=== PATIENT | male | born 1950 | race Caucasian/White ===

== ENCOUNTER 2017-03-23 03:28 | Observation (INO) | payer MEDICARE, OTHER ==
[2017-03-23] VITALS (7 sets, daily range): BP systolic 116–160; BP diastolic 48–73; PULSE 60–80; RESP 14–21; O2SAT 95–97
[~2017-03-23] VITALS: Ht 167.6 cm; Wt 117.7 kg
[~2017-03-23 03:28] MED LIST: ADV250INH IH; APIX5TAB PO; ASCO-294 PO; ASPI-973 PO; BIMA2.5D5 BOTH_EYES; BRIM5DRO9 BOTH_EYES; CARV12.5 PO; CEPH500C PO; CHOL200047 PO; FEXO-106 PO; FURO40TA4 PO; LIP40 PO; LISI40TA PO; METF500T4 PO; OMEP20CA11 PO; POTA10CA42 PO; VIT1TABL83 PO; ZAFI20TA14 PO
--- NOTE | 2017-03-23 03:48 | ED.REPORT ---
HPI-Chest Pain 40 and Over Date of Service Mar 23, 2017 ED Provider: Catracho Rosen MD 67 y/o male with a hx of Diabetes Mellitus, Hypertension, paroxysmal atrial fibrillation, CHF and GERD presents to the ED via EMS complaining of chest pain , onset 7 hours ago. Initally, the pt thought he was experiencing GERD sx but then became concerned as the sx were significantly worse than normal. He experienced burning pain followed by belching. Associated sx include intermittent "sharp, pin prick pain" in the chest. He denies vomiting, SOB, diaphoresis, change in lower extremity edema and facial and extremity numbness and weakness. The pt takes Omeprazole twice a day and denies missing any doses. The pt got a pacemaker placed two weeks ago. He states he used his pulsometer and found that his pacemaker had been fluctuating which concerned him further. The pt took 4 baby Aspirin about 2 hours ago. Nursing Notes Stated Complaint: CHEST PAIN Nursing Notes Reviewed: Yes Allergies: Coded Allergies: Cat Dander (Verified Allergy, Severe, 03/23/17) Cultivated Oat Pollen (Verified Allergy, Severe, 03/23/17) Dust (Verified Allergy, Severe, 03/23/17) Grass (Verified Allergy, Severe, 03/23/17) hydrocodone (Verified Allergy, Mild, Rash, 03/23/17) FACE FELT ITCHY mold (Verified Allergy, Unknown, Shortness of Breath, 03/23/17) WHEEZING, FACIAL SWELLING montelukast (Verified Adverse Reaction, Severe, delirium, 03/23/17) Scheduled Apixaban (Eliquis) 5 Mg Tablet 5 MG PO BID Ascorbate Calcium (Vitamin C) 500 Mg Tablet 500 MG PO DAILY Aspirin (Aspirin) 81 Mg Tablet 81 MG PO HS Atorvastatin (Lipitor) 40 Mg Tablet 40 MG PO HS Bimatoprost (Lumigan) 45 Drop/2.5 Ml Ophsoln 1 DROP BOTH_EYES HS Brimonidine Tartrate (Brimonidine 0.2% Oph Soln) 5 Ml Drops 1 DROP BOTH_EYES TID Carvedilol (Coreg) 12.5 Mg Tablet 12.5 MG PO BID Cephalexin (Cephalexin) 500 Mg Capsule 500 MG PO BID Cholecalciferol (Vitamin D3) (Vitamin D3) 2,000 Unit Capsule 4,000 UNIT PO DAILY Fexofenadine (Fexofenadine) 180 Mg Tablet 180 MG PO DAILY EVERY OTHER DAY Fluticasone/Salmeterol (Advair 250-50 Diskus) 60 Puff/Inh Disk 1 PUFF IH BID Furosemide (Furosemide) 40 Mg Tablet 40 MG PO DAILY Lisinopril (Lisinopril) 40 Mg Tablet 60 MG PO HS Metformin (Metformin) 500 Mg Tablet 500 MG PO BID Omeprazole (Omeprazole) 20 Mg Capsule.dr 40 MG PO BID Potassium Chloride (Potassium Chloride) 10 Meq Capsule.er 10 MEQ PO DAILY TAKE WITH FOOD Vit B Comp/C/FA/Iron/Vit E (Vitamin B Complex Tablet) 1 Each Tablet 1 EACH PO DAILY Zafirlukast (Zafirlukast) 20 Mg Tablet 20 MG PO BID General Time Seen by MD: 03:47 Chief Complaint Chest pain Hx Obtained From: Patient Arrived By: Ambulance Sudden in Onset?: Yes Onset Occurred: 9 - 12 hours ago Symptom Duration: Since onset Location: : Chest left: Substernal Quality: Burning Radiation: : Does not radiate Severity: Current: Moderate Severity: Maximum: Moderate Recent Healthcare: No recent doctor visit Similar Sx Previous: No Past Medical History Past Medical History Glaucoma Diabetes Mellitus Hypertension GERD Paroxysmal atrial fibrillation CHF GERD ASTHMA SLEEP APNEA MELANOMA CANCER (S/P RESECTION) Past Surgical History laproscopic surgery on right knee melanoma removed from left cheek Smoking History Never Smoker Ambulatory Status Independent Review of Systems Respiratory: Denies: Shortness of breath Cardiovascular: Reports: Chest pain, Denies: Edema (no change from baseline) GI: Denies: Vomiting Skin: Denies Diaphoresis Neurologic: Denies: Numbness, Weakness Complete sys rev & neg: except as marked. Physical Exam Initial Vital Signs Vital Signs (First) Date Time Temp Pulse Resp B/P Pulse Ox O2 Delivery O2 Flow Rate FiO2 03/23/17 03:51 36.7 71 14 156/67 97 Room Air Initial VS: Reviewed Head / Eyes: Atraumatic, Normocephalic Extremities: Vascular intact, Neuro intact, No tenderness Skin: Warm, Dry, No cyanosis Neurologic: Alert, Oriented, Nonfocal General/Constitutional: Awake, Alert, No acute distress, Cooperative Appearance / Presentation: Positive: Obese Respiratory / Chest: Atraumatic, Breath sounds NL, Breath sounds = bilat, No respiratory distress, No rales, No rhonchi, No wheezing, No retractions Cardiovascular: Heart rate NL, Regular rhythm, Heart sounds NL, No gallop, No murmurs, No rubs Extreme chronic edema bilaterally. Pt wearing compression stockings. Abdomen: Atraumatic, Soft, Non-tender, No guarding, No rebound Umbilical hernia, reducible but has gas in it. Neck: Atraumatic, Supple, Full range of motion, No JVD Interpretation & Diagnostics Lab Results Interpretation Result Diagram: 03/23/17 0415 03/23/17 0415 Test 03/23/17 04:15 White Blood Count 10.5th/mm3 (3.8-10.1) Red Blood Count 3.93mil/mm3 (4.40-5.80) Hemoglobin 11.9g/dL (13.8-17.2) Hematocrit 35.9% (41.0-50.0) Mean Corpuscular Volume 91.3fL (81-100) Mean Corpuscular Hemoglobin 30.3pg (27.0-35.0) Mean Corpuscular Hemoglobin Concent 33.1% (32.0-37.0) Red Cell Distribution Width 13.8% (12.3-15.4) Platelet Count 261bil/L (150-400) Neutrophils (%) (Auto) 79.1% (40-74) Lymphocytes (%) (Auto) 10.3% (14-46) Monocytes (%) (Auto) 8.4% (4-12) Eosinophils (%) (Auto) 1.8% (0-5) Basophils (%) (Auto) 0.2% (0-3) Sodium Level 143mEq/L (134-144) Potassium Level 3.8mEq/L (3.5-5.2) Chloride Level 107mEq/L (97-108) Carbon Dioxide Level 18mmol/L (18-29) Blood Urea Nitrogen 18mg/dL (8-27) Creatinine 0.94mg/dL (0.76-1.27) Estimat Glomerular Filtration Rate 85mL/min (>59) Glucose Level 143mg/dL (60-99) Calcium Level 9.1mg/dL (8.5-10.1) Magnesium Level 2.0mg/dL (1.6-2.6) Total Bilirubin 0.4mg/dL (0.0-1.2) Aspartate Amino Transf (AST/SGOT) 17U/L (0-50) Alanine Aminotransferase (ALT/SGPT) 23U/L (0-44) Alkaline Phosphatase 91U/L (25-160) Troponin T 0.010ug/L (0.0-0.011) Pro-B-Type Natriuretic Peptide 562.0pg/mL (0-376) Total Protein 6.6g/dL (6.4-8.4) Albumin 3.8g/dL (3.4-5.0) Hold Moody Top Tube Received (Received) ECG Interpretation ECG Interpretation: Normal sinus rhtyhm. Rate 70. Prolonged WA interval. Right bundle branch block 1st degree AV block Pacemaker placed No change from previous ECG on 03/10/17 Time: 03:49 Interpreted by: ED physician X-Ray Chest Interpretation Chest Xray Interpretation: Result: unremarkable View: Portable, 1 view Interpretation / Wet Read by: Wet read ED physician Re-Eval/Medical Decision Med Decision/Clinical Course 67-year-old diabetic male presents with sharp pricking chest pain off and on for the last seven hours or so. Pain is atypical for coronary disease, but he is diabetic with a history of CHF and paroxysmal A. fib. He has recently had a pacemaker installed. He is ultimately pain free here with an acids, nitrates, and had taken aspirin en route. He is admitted for brief rule out protocol given his multiple risk factors. Incidental note of facial asymmetry made. 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 There are no neurologic findings elsewhere. Incidental note also made of a significant umbilical hernia with got and gas in the hernia. No evidence of incarceration no tenderness and it is easily reduced. Recent AICD/pacemaker installed in the past two weeks. History of PAF stable presently. History of CHF. Diabetes mellitus. Morbid obesity. Chronic peripheral edema. Source of Hx: Old records Time of Eval: 05:15 Patient Status: Mild relief Re-Evaluation/Progress Note: Rechecked pt. Discussed lab results, imaging results, diagnosis and plan to admit. Pt understands and agrees with the plan for admission. All questions addressed. Counseled Regarding: Diagnosis, Lab results, Need for admission Discharge & Departure Primary Impression: Chest pain Additional Impressions: Dilated cardiomyopathy Gastroesophageal reflux disease Disposition: ADMITTED TO HOSPITAL Discharge Condition All VS Reviewed: Yes Referrals: Andre Donovan DO (PCP) Crit Care Except Billable Proc Time Spent: 30-74 minutes (thirty minutes) Services Performed: Patient management by me, Time spent at bedside, Reviewing test results, Reviewing imaging, Discussing patient care, Documentation in record Scribe Attestation Portions of this note were transcribed by Juan Bray. I, , personally performed the history, physical exam and medical decision- making;I reviewed and confirmed the accuracy of the information in the transcribed note. Signed by Logan Cowart. 03/23/17 05:18 copies to: Andre Donovan Christopher W MD Mar 23, 2017 03:48 Juan Bray Mar 23, 2017 04:01
[2017-03-23] MEDS ORDERED: Famotidine Inj 20 MG in IV Premix 1 EACH IV ONE (04:00)
[2017-03-23] MEDS ORDERED: Alum-Mag Hydrox-Simeth 30 mL Suspension PO ONE (04:00)
[2017-03-23] MEDS ORDERED: Nitroglycerin 2% 1 Gm Ointment TOPICAL SCH (04:20)
[2017-03-23 04:22] LABS: BASOPHILS % (AUTO) 0.2 % (0-3); EOSINOPHILS % (AUTO) 1.8 % (0-5); MONOCYTES % (AUTO) 8.4 % (4-12); Mean Corpuscular Hemoglobin 30.3 pg (27.0-35.0); Mean Corpuscular Volume 91.3 fL (81-100); NEUTROPHILS % (AUTO) 79.1 % (40-74); Platelet Count 261 bil/L (150-400)
[2017-03-23 04:43] LABS: TROPONIN T 0.01 ug/L (0.0-0.011)
[2017-03-23] MEDS ORDERED: Ondansetron 2 mg/mL 2 mL Inj IVPUSH PRN ×2 (06:10→16:20)
[2017-03-23] MEDS ORDERED: Alum-Mag Hydrox-Simeth 30 mL Suspension PO PRN ×2 (06:10→16:20)
--- NOTE | 2017-03-23 08:20 | DRSVH ---
PROCEDURE: X-RAY CHEST ONE VIEW, PORTABLE ([id number]) INDICATIONS: cp TECHNIQUE: One view of the chest was acquired. COMPARISON: [facility], CR, XR CHEST 1VW (PORTABLE), 03/10/2017, 18:12. FINDINGS: Surgical changes and devices: Left-sided cardiac pacer. Lungs and pleura: No pleural effusions or pneumothorax. Lungs are clear. Mediastinum: Mediastinal contours appear normal. Heart size is normal. Bones and chest wall: No suspicious bony lesions. Overlying soft tissues appear unremarkable. IMPRESSION: No radiographic evidence of acute cardiopulmonary pathology. Dictated by: Moisés Porras M.D. on 03/23/2017 at 8:17 Approved by: Moisés Porras M.D. on 03/23/2017 at 8:18
--- NOTE | 2017-03-23 14:10 | NUR ---
Social Work-initial assessment/readiness for discharge: Data:See initial assessment. Pt is a 67 y/o male who was admitted on 03/23/17 for chest pain per H&P. Pt's insurance is [employer] and PCP Andre Donovan DO. EMR reviewed. SW met with pt to discuss discharge planning, SW role explained. Pt is alert and oriented x3. Pt resides at home alone on [address] where he remains independent with ADLS. Pt drives and does use any DME. Pt has no HH or SNF history. Pt has no watermaster care or VA benefits. SW discussed DPOA/ advanced directive, pt confirms he has not completed this, SW provided pt with a copy. Pt states his family will provide transport home at discharge. SW provided phone number and plan on white board in room. No anticipated discharge needs. SW will continue to follow if needs arise. Assessment:Pt who is independent at baseline. Plan:Pt to discharge home when medically stable via POV. No anticipated discharge needs. SW will continue to follow if needs arise. CASPER Medrano Addendum: 03/23/17 at 1418 by LUDMILA LANGE Amended: Links added.
--- NOTE | 2017-03-23 15:51 | DRSVH ---
[facility] [address] [place] [address] Echocardiogram Report Name: NOAH RUSSELL WStudy Date: 03/23/2017 Height: 66 in Hospital Exam Location: [facility] Weight: 259 lb Gender: Male BSA: 2.2 m2 : 1950 Age: 67 yrs BP: 132/69 mmHg Reason For Study: Chest Pain Performed By: Tona Swartz Referring Physician: CHRIS HARRISON Interpretation Summary The study quality was technically difficult. A contrast injection of Definity was performed to improve assessment of LV function. Left ventricular ejection fraction is estimated to be 35 +/- 5%. There is moderate global hypokinesis of the left ventricle. Severe mid to basal inferior hypokinesis There is no significant valvular heart disease. Procedure: A two-dimensional transthoracic echocardiogram with color flow and Doppler was performed in limited views only. The study quality was technically difficult. A contrast injection of Definity was performed to improve assessment of LV function. Comparison is made with the echocardiogram of 03/11/2017. The patient has a paced rhythm. Left Ventricle: The left ventricle is normal in size. Left ventricular ejection fraction is estimated to be 35 +/- 5%. There is moderate global hypokinesis of the left ventricle. Severe mid to basal inferior hypokinesis. Right Ventricle: The right ventricle is grossly normal size. There is a pacemaker lead in the right ventricle. Mitral Valve: The mitral valve is normal in structure and function. There is trace mitral regurgitation. Aortic Valve: The aortic valve is trileaflet. The aortic valve opens well. No aortic regurgitation is present. Tricuspid Valve: The tricuspid valve is normal in structure and function. There is moderate tricuspid regurgitation. The right ventricular systolic pressure is estimated at 68 mmHg assuming a right atrial pressure of 8 mm Hg. Great Vessels: The IVC is of normal diameter and collapses less than 50% with a sniff. This suggests a right atrial pressure of 8 mm Hg. Pericardium/ Pleura There is no pericardial effusion. There is no pleural effusion. MMode/2D Measurements & Calculations LVIDd LV miranda. diameter/BSA (cm/m^2) LV sys. diameter/BSA (cm/m^2) : 5.7 cm LVIDs : 4.2 cm FS: 25.9 % Doppler Measurements & Calculations Ao V2 max: 147.8 cm/secMV E max shiva MV E/A MV dec time Ao max P.7 mmHg : 59.4 cm/sec : 1.2 : 0.16 sec Ao mean P.7 mmHg MV A max shiva LVOT Max Shiva : 51.2 cm/sec : 90.8 cm/sec sev ratio: 0.60 Ao V2 mean LV V1 max P.3 mmHg : 115.9 cm/sec LV V1 VTI: 19.9 cm Ao V2 VTI: 33.1 cm Electronically signed by: Ernesto Tabor on Reading Physician:03/23/2017 03:50 PM
[2017-03-23] MEDS ORDERED: Polyethylene Glycol (PEG) 17 Gm Powder PO PRN (16:20)
[2017-03-23] MEDS ORDERED: Heparin 5,000 Unit/mL Inj SUBQ SCH (16:30)
--- NOTE | 2017-03-23 16:31 | PCM.HPMED ---
Subjective Date of Service Mar 23, 2017 Primary Provider: Admitting Physician: Fawad Singer Primary Care Physician: Andre Donovan DO Attending Physician: Fawad Singer Chief Complaint: chest pain History of Present Illness: 67 year old male with a history of Diabetes Mellitus, Hypertension, paroxysmal atrial fibrillation, GERD and significant cardiomyopathy post pacemaker implant about 2 weeks ago presents to the ED via EMS complaining of chest pain. Initially he thought he was experiencing his "regular" GERD symptoms but his symptoms of midsternal chest discomfort persisted and became worse than usual. He experienced burning pain followed by belching. Associated sx include intermittent "sharp, pin prick pain" in the chest. He denies vomiting, any shortness of breath worse than usual, diaphoresis, change in lower extremity edema, lightheadedness or dizziness. He used his pulsometer and found that his pulse was between 60-90 bpm which was unusual compared to his fairly stable heart rate of 60bpm after his pacemaker implant 2 weeks earlier. He became concerned and contacted his doctors office and was instructed to come to ED for further evaluation. Currently he denies any further chest discomfort and says that he feels back to his "usual" self. Allergies Coded Allergies: Cat Dander (Verified Allergy, Severe, 03/23/17) Cultivated Oat Pollen (Verified Allergy, Severe, 03/23/17) Dust (Verified Allergy, Severe, 03/23/17) Grass (Verified Allergy, Severe, 03/23/17) hydrocodone (Verified Allergy, Mild, Rash, 03/23/17) FACE FELT ITCHY mold (Verified Allergy, Unknown, Shortness of Breath, 03/23/17) WHEEZING, FACIAL SWELLING montelukast (Verified Adverse Reaction, Severe, delirium, 03/23/17) Home Medications Apixaban (Eliquis) 5 Mg Tablet 5 MG PO BID Ascorbate Calcium (Vitamin C) 500 Mg Tablet 500 MG PO DAILY Aspirin (Aspirin) 81 Mg Tablet 81 MG PO HS Atorvastatin (Lipitor) 40 Mg Tablet 40 MG PO HS Bimatoprost (Lumigan) 45 Drop/2.5 Ml Ophsoln 1 DROP BOTH_EYES HS Brimonidine Tartrate (Brimonidine 0.2% Oph Soln) 5 Ml Drops 1 DROP BOTH_EYES TID Carvedilol (Coreg) 12.5 Mg Tablet 12.5 MG PO BID Cephalexin (Cephalexin) 500 Mg Capsule 500 MG PO BID Cholecalciferol (Vitamin D3) (Vitamin D3) 2,000 Unit Capsule 4,000 UNIT PO DAILY Fexofenadine (Fexofenadine) 180 Mg Tablet 180 MG PO DAILY EVERY OTHER DAY Fluticasone/Salmeterol (Advair 250-50 Diskus) 60 Puff/Inh Disk 1 PUFF IH BID Furosemide (Furosemide) 40 Mg Tablet 40 MG PO DAILY Lisinopril (Lisinopril) 40 Mg Tablet 60 MG PO HS Metformin (Metformin) 500 Mg Tablet 500 MG PO BID Omeprazole (Omeprazole) 20 Mg Capsule.dr 40 MG PO BID Potassium Chloride (Potassium Chloride) 10 Meq Capsule.er 10 MEQ PO DAILY TAKE WITH FOOD Vit B Comp/C/FA/Iron/Vit E (Vitamin B Complex Tablet) 1 Each Tablet 1 EACH PO DAILY Zafirlukast (Zafirlukast) 20 Mg Tablet 20 MG PO BID Exam Vital Signs & I/O Vital Sign- Last 8 Hours Date Time Temp Pulse Resp B/P Pulse Ox O2 Delivery O2 Flow Rate FiO2 03/23/17 15:00 37.0 60 16 138/70 96 Room Air 03/23/17 10:44 68 03/23/17 09:29 37.2 60 16 132/69 95 Room Air Lab & Micro Results Laboratory Tests Test 03/23/17 04:15 03/23/17 08:34 03/23/17 16:05 White Blood Count 10.5th/mm3 (3.8-10.1) Red Blood Count 3.93mil/mm3 (4.40-5.80) Hemoglobin 11.9g/dL (13.8-17.2) Hematocrit 35.9% (41.0-50.0) Mean Corpuscular Volume 91.3fL (81-100) Mean Corpuscular Hemoglobin 30.3pg (27.0-35.0) Mean Corpuscular Hemoglobin Concent 33.1% (32.0-37.0) Red Cell Distribution Width 13.8% (12.3-15.4) Platelet Count 261bil/L (150-400) Neutrophils (%) (Auto) 79.1% (40-74) Lymphocytes (%) (Auto) 10.3% (14-46) Monocytes (%) (Auto) 8.4% (4-12) Eosinophils (%) (Auto) 1.8% (0-5) Basophils (%) (Auto) 0.2% (0-3) Sodium Level 143mEq/L (134-144) Potassium Level 3.8mEq/L (3.5-5.2) Chloride Level 107mEq/L (97-108) Carbon Dioxide Level 18mmol/L (18-29) Blood Urea Nitrogen 18mg/dL (8-27) Creatinine 0.94mg/dL (0.76-1.27) Estimat Glomerular Filtration Rate 85mL/min (>59) Glucose Level 143mg/dL (60-99) Calcium Level 9.1mg/dL (8.5-10.1) Magnesium Level 2.0mg/dL (1.6-2.6) Total Bilirubin 0.4mg/dL (0.0-1.2) Aspartate Amino Transf (AST/SGOT) 17U/L (0-50) Alanine Aminotransferase (ALT/SGPT) 23U/L (0-44) Alkaline Phosphatase 91U/L (25-160) Troponin T 0.010ug/L (0.0-0.011) 0.010ug/L (0.0-0.011) Pro-B-Type Natriuretic Peptide 562.0pg/mL (0-376) Total Protein 6.6g/dL (6.4-8.4) Albumin 3.8g/dL (3.4-5.0) Hold Moody Top Tube Received (Received) Result Diagram: 03/23/17 0415 03/23/17 0415 Review of Systems: Constitutional: Negative, except as otherwise mentioned in the history above. Ophthalmologic: Negative, except as otherwise mentioned in the history above. Cardiovascular: Negative, except as otherwise mentioned in the history above. Respiratory: Negative, except as otherwise mentioned in the history above. Gastrointestinal: Negative, except as otherwise mentioned in the history above. Genitourinary: Negative, except as otherwise mentioned in the history above. Musculoskeletal: Negative, except as otherwise mentioned in the history above. Neurological: Negative, except as otherwise mentioned in the history above. Psychiatric: Negative, except as otherwise mentioned in the history above. Hematologic/Lymphatic: Negative, except as otherwise mentioned in the history above. Allergic/Immunologic: Negative, except as otherwise mentioned in the history above. PMH 1. Diabetes mellitus type II (non-Insulin dependent) 2. Hypertension. 3. Obesity. 4. Cardiomyopathy with EF of about 35% s/p recent pacemaker implant as noted in ED 5. Possible underlying A-fib Family History both parents with cardiac disease Social History Hx Alcohol Use: No (RARELY) Hx Substance Use: No Hx Tobacco Use: No Smoking Status: Never Smoker Exam Vital Signs Vital Sign - Last Date Time Temp Pulse Resp B/P Pulse Ox O2 Delivery O2 Flow Rate FiO2 03/23/17 15:00 37.0 60 16 138/70 96 Room Air General: Alert, Oriented X3, Cooperative, No Acute Distress Head: Normal Eyes: PERRLA, EOMI, Scleral Anicteric Nose: Mucous Membr Moist/[place] Mouth: Mucous Membr Moist/[place] Neck: Supple Chest & Lungs: Chest Wall Normal, Clear to auscultation & percussion Cardiovascular: Regular Rate/Rhythm Pulses: NL carotid, radial, femoral, DP, PT Abdomen: Non-tender, Non-distended, Normoactive bowel tones, Soft Extremities: No cyanosis/clubbing/edma bilat Skin: Other (no ulcer/rash) Neurological: Grossly Neurologically Intact, Cranial Nerves 2-12 Intact, Normal Speech Lymphatic: Other Lymph Nodes (no significant lymphadenopathy) Lab and Diagnostics Result Diagram: 03/23/17 0415 03/23/17 0415 X-Rays, CTs and MRIs Date of Service: 03/23/17 0348 PROCEDURE: X-RAY CHEST ONE VIEW, PORTABLE ([id number]) IMPRESSION: No radiographic evidence of acute cardiopulmonary pathology. Dictated by: Miosés Porras M.D. on 03/23/2017 at 8:17 Approved by: Moisés Porras M.D. on 03/23/2017 at 8:18 12-lead ECG NSR at about [address] elevation/depression Cardiac Echo Impressions Date of Service: 03/23/17 1306 Echocardiogram Report Interpretation Summary The study quality was technically difficult. A contrast injection of Definity was performed to improve assessment of LV function. Left ventricular ejection fraction is estimated to be 35 +/- 5%. There is moderate global hypokinesis of the left ventricle. Severe mid to basal inferior hypokinesis There is no significant valvular heart disease. Electronically signed by: Ernesto Tabor on Reading Physician:03/23/2017 03:50 PM Assessment & Plan 67 year old male with a history of Diabetes Mellitus, Hypertension, paroxysmal atrial fibrillation, GERD and significant cardiomyopathy post pacemaker implant about 2 weeks ago presents to the ED via EMS complaining of chest pain. # Acute chest pain. present on admission. - Resolved. - ACS ruled out with negative Trop - Discussed with patient's water commissioner (Dr. Sorensen) who recommended limited Echo and per discussion with Dr. Sorensen who reviewed the Echo (noted above) no acute changes noted - Pacer interrogated by Dr. Sorensen as well and unremarkable. - Patient had negative cath just about one month ago and thus will not pursue any further cardiac workup at this time - Resume home medications - Followup with cardiology within one week as was already scheduled # History of Diabetes - Continue with home medications # History of hypertension. Stable - Continue with home medications Dispo: Home later today VTE Prophylaxis: SCDs Resuscitation Status: CPR: Attempt Resuscitation (discussed and verified with patient) Time spent 60 min Fawad Singer Mar 23, 2017 16:31
--- NOTE | 2017-03-23 16:43 | PCM.DIMED ---
Discharge Instructions Date of Service Mar 23, 2017 Dates of Hospitalization Mar 23, 2017 at 05:35 Discharge Diagnosis Discharge Diagnosis # Acute chest pain. present on admission. Resolved. Unclear etiology but possibly due to gastric reflux and ruled out for acute myocardial infarction. # History of Diabetes # History of hypertension. Medication Instructions Additional med instructions Resume home medications as before Diet Discharge Diet: Low fat, Low Sodium, Heart Healthy, Diabetic Activity Discharge Activity: No restrictions Call your provider Call your provider for: Fever or Chills, Shortness of breath, Bleeding, Chest pain Patient Instructions Patient Instructions Seek immediate medical attention if any new or worsening signs or symptoms occur. Follow-up plan 1. Followup with primary care provider in about one week 2. Followup with cardiology (Dr. Sorensen) in 1-2 weeks as previously scheduled. Follow-up Provider: Andre Donovan DO Provider: Barber Sorensen MD, Masoud Mar 23, 2017 16:43
--- NOTE | 2017-03-23 16:47 | PCM.DC.MED ---
Discharge Summary Date of Service Mar 23, 2017 Dates of Hospitalization Date of Hospital Admission Mar 23, 2017 at 05:35 Date of Discharge: Mar 23, 2017 Providers: Admitting Physician: Fawad Singer Primary Care Physician: Andre Donovan DO Attending Physician: Fawad Singer Diagnosis at Time of Discharge Diagnosis at Time of Discharge # Acute chest pain. present on admission. Resolved. Unclear etiology but possibly due to gastric reflux and ruled out for acute myocardial infarction. # History of Diabetes # History of hypertension. Procedures XRay, CTs & MRIs Date of Service: 03/23/17 0348 PROCEDURE: X-RAY CHEST ONE VIEW, PORTABLE ([id number]) IMPRESSION: No radiographic evidence of acute cardiopulmonary pathology. Dictated by: Moisés Porras M.D. on 03/23/2017 at 8:17 Approved by: Moisés Porras M.D. on 03/23/2017 at 8:18 ECG 12 Lead NSR at about [address] elevation/depression Cardiac Echo Impression Date of Service: 03/23/17 1306 Echocardiogram Report Interpretation Summary The study quality was technically difficult. A contrast injection of Definity was performed to improve assessment of LV function. Left ventricular ejection fraction is estimated to be 35 +/- 5%. There is moderate global hypokinesis of the left ventricle. Severe mid to basal inferior hypokinesis There is no significant valvular heart disease. Electronically signed by: Ernesto Tabor on Reading Physician:03/23/2017 03:50 PM Brief History 67 year old male with a history of Diabetes Mellitus, Hypertension, paroxysmal atrial fibrillation, GERD and significant cardiomyopathy post pacemaker implant about 2 weeks ago presents to the ED via EMS complaining of chest pain. Initially he thought he was experiencing his "regular" GERD symptoms but his symptoms of midsternal chest discomfort persisted and became worse than usual. He experienced burning pain followed by belching. Associated sx include intermittent "sharp, pin prick pain" in the chest. He denies vomiting, any shortness of breath worse than usual, diaphoresis, change in lower extremity edema, lightheadedness or dizziness. He used his pulsometer and found that his pulse was between 60-90 bpm which was unusual compared to his fairly stable heart rate of 60bpm after his pacemaker implant 2 weeks earlier. He became concerned and contacted his doctors office and was instructed to come to ED for further evaluation. Currently he denies any further chest discomfort and says that he feels back to his "usual" self. Hospital Course # Acute chest pain. present on admission. - Resolved. - ACS ruled out with negative Trop - Discussed with patient's field operations farm manager (Dr. Sorensen) who recommended limited Echo and per discussion with Dr. Sorensen who reviewed the Echo (noted above) no acute changes noted - Pacer interrogated by Dr. Sorensen as well and unremarkable. - Patient had negative cath just about one month ago and thus will not pursue any further cardiac workup at this time - Resume home medications - Followup with cardiology within one week as was already scheduled # History of Diabetes - Continue with home medications # History of hypertension. Stable - Continue with home medications Exam Vital Signs (Last) Date Time Temp Pulse Resp B/P Pulse Ox O2 Delivery O2 Flow Rate FiO2 03/23/17 15:00 37.0 60 16 138/70 96 Room Air Test 03/23/17 04:15 03/23/17 16:05 White Blood Count 10.5th/mm3 (3.8-10.1) Red Blood Count 3.93mil/mm3 (4.40-5.80) Hemoglobin 11.9g/dL (13.8-17.2) Hematocrit 35.9% (41.0-50.0) Mean Corpuscular Volume 91.3fL (81-100) Mean Corpuscular Hemoglobin 30.3pg (27.0-35.0) Mean Corpuscular Hemoglobin Concent 33.1% (32.0-37.0) Red Cell Distribution Width 13.8% (12.3-15.4) Platelet Count 261bil/L (150-400) Neutrophils (%) (Auto) 79.1% (40-74) Lymphocytes (%) (Auto) 10.3% (14-46) Monocytes (%) (Auto) 8.4% (4-12) Eosinophils (%) (Auto) 1.8% (0-5) Basophils (%) (Auto) 0.2% (0-3) Sodium Level 143mEq/L (134-144) Potassium Level 3.8mEq/L (3.5-5.2) Chloride Level 107mEq/L (97-108) Carbon Dioxide Level 18mmol/L (18-29) Blood Urea Nitrogen 18mg/dL (8-27) Creatinine 0.94mg/dL (0.76-1.27) Estimat Glomerular Filtration Rate 85mL/min (>59) Glucose Level 143mg/dL (60-99) Calcium Level 9.1mg/dL (8.5-10.1) Magnesium Level 2.0mg/dL (1.6-2.6) Total Bilirubin 0.4mg/dL (0.0-1.2) Aspartate Amino Transf (AST/SGOT) 17U/L (0-50) Alanine Aminotransferase (ALT/SGPT) 23U/L (0-44) Alkaline Phosphatase 91U/L (25-160) Pro-B-Type Natriuretic Peptide 562.0pg/mL (0-376) Total Protein 6.6g/dL (6.4-8.4) Albumin 3.8g/dL (3.4-5.0) Hold Moody Top Tube Received (Received) Troponin T < 0.010ug/L (0.0-0.011) Discharge Medications Discharge Medications Apixaban (Eliquis) 5 Mg Tablet 5 MG PO BID Prescribed by: KIESHA FITCH MD Ascorbate Calcium (Vitamin C) 500 Mg Tablet 500 MG PO DAILY (Reported) Aspirin (Aspirin) 81 Mg Tablet 81 MG PO HS (Reported) Atorvastatin (Lipitor) 40 Mg Tablet 40 MG PO HS (Reported) Bimatoprost (Lumigan) 45 Drop/2.5 Ml Ophsoln 1 DROP BOTH_EYES HS (Reported) Brimonidine Tartrate (Brimonidine 0.2% Oph Soln) 5 Ml Drops 1 DROP BOTH_EYES TID (Reported) Carvedilol (Coreg) 12.5 Mg Tablet 12.5 MG PO BID (Reported) Cholecalciferol (Vitamin D3) (Vitamin D3) 2,000 Unit Capsule 4,000 UNIT PO DAILY (Reported) Fexofenadine (Fexofenadine) 180 Mg Tablet 180 MG PO DAILY (Reported) EVERY OTHER DAY Fluticasone/Salmeterol (Advair 250-50 Diskus) 60 Puff/Inh Disk 1 PUFF IH BID ( Reported) Furosemide (Furosemide) 40 Mg Tablet 40 MG PO DAILY (Reported) Lisinopril (Lisinopril) 40 Mg Tablet 60 MG PO HS (Reported) Metformin (Metformin) 500 Mg Tablet 500 MG PO BID (Reported) Omeprazole (Omeprazole) 20 Mg Capsule.dr 40 MG PO BID (Reported) Potassium Chloride (Potassium Chloride) 10 Meq Capsule.er 10 MEQ PO DAILY ( Reported) TAKE WITH FOOD Vit B Comp/C/FA/Iron/Vit E (Vitamin B Complex Tablet) 1 Each Tablet 1 EACH PO DAILY (Reported) Zafirlukast (Zafirlukast) 20 Mg Tablet 20 MG PO BID (Reported) Additional med instructions Resume home medications as before Followup Plan Disposition: Home Follow-up plan 1. Followup with primary care provider in about one week 2. Followup with cardiology (Dr. Sorensen) in 1-2 weeks as previously scheduled. Discharge Diet: Low fat, Low Sodium, Heart Healthy, Diabetic Discharge Activity: No restrictions Patient Instructions Seek immediate medical attention if any new or worsening signs or symptoms occur. Follow-up Provider: Andre Donovan DO Provider: Barber Sorensen MD Time spent 30 copies to: Andre Donovan DO; Barber Sorensen MD, Masoud Mar 23, 2017 16:47
--- NOTE | 2017-03-23 18:05 | NUR ---
Discharge Pt discharged at this time. All belongings gathered and returned to pt. VSS, No complains of increased pain, chest discomfort or pressure. No new prescriptions given. Discharge packet printed and reviewed with pt. Pt declined offer of wheelchair, steady gait observed. Pt [place] [facility] [place] this RN to await ride home at from entrance.
[2017-03-23] MEDS ORDERED: Brimonidine 0.2% 5 mL Ophthalmic Solution BOTH_EYES SCH (20:30)
[2017-03-23] MEDS ORDERED: Fluticasone-Salmererol 250-50 Inhaler INHALATION SCH (20:30)
[2017-03-23] MEDS ORDERED: Lisinopril 40 Tablet PO SCH (21:00)
[2017-03-24] MEDS ORDERED: Pantoprazole 40 mg ER24 Tablet PO SCH (06:30)
== END 2017-03-23 18:10 | disposition home or self-care (01) ==
LOC: EDBD 03:28 → SED 03:28 → MPC 05:35
PROVIDERS: ADMIT Internal Medicine; ATTEND Internal Medicine
DX: R07.9 Chest pain, unspecified (principal); K21.9 Gastro-esophageal reflux disease without esophagitis; I10 Essential (primary) hypertension; E11.9 Type 2 diabetes mellitus without complications; I48.0 Paroxysmal atrial fibrillation; I50.9 Heart failure, unspecified; I42.9 Cardiomyopathy, unspecified; J45.909 Unspecified asthma, uncomplicated; G47.33 Obstructive sleep apnea (adult) (pediatric); E66.01 Morbid (severe) obesity due to excess calories; Z95.0 Presence of cardiac pacemaker; Z79.82 Long term (current) use of aspirin; Z79.84 Long term (current) use of oral hypoglycemic drugs; Z88.8 Allergy status to other drugs, medicaments and biological substances; Z91.048 Other nonmedicinal substance allergy status; Z85.820 Personal history of malignant melanoma of skin; Z68.41 Body mass index [BMI] 40.0-44.9, adult
CPT/HCPCS: 36415; 71010; 80053; 83735; 83880; 84484; 85025; 93005; 96374; 99291; C8924; G0378; J3490; Q9957

== ENCOUNTER 2017-06-11 21:03 | Emergency (ER) | payer MEDICARE, OTHER ==
[~2017-06-11] VITALS: Ht 167.6 cm; Wt 119.5 kg
[~2017-06-11 21:03] MED LIST changes: -CEPH500C PO
[2017-06-11 21:12] VITALS: BP 157/46; PULSE 84; RESP 19; O2SAT 96
--- NOTE | 2017-06-11 21:36 | ED.REPORT ---
HPI-Dyspnea / Wheezing Date of Service Jun 11, 2017 ED Provider: Nursing Notes Stated Complaint: SHORTNESS OF BREATH Chief Complaint: General Complaint Allergies: Coded Allergies: Cat Dander (Verified Allergy, Severe, 06/11/17) Cultivated Oat Pollen (Verified Allergy, Severe, 06/11/17) Dust (Verified Allergy, Severe, 06/11/17) Grass (Verified Allergy, Severe, 06/11/17) hydrocodone (Verified Allergy, Mild, Rash, 06/11/17) FACE FELT ITCHY mold (Verified Allergy, Unknown, Shortness of Breath, 06/11/17) WHEEZING, FACIAL SWELLING montelukast (Verified Adverse Reaction, Severe, delirium, 06/11/17) Scheduled Apixaban (Eliquis) 5 Mg Tablet 5 MG PO BID Ascorbate Calcium (Vitamin C) 500 Mg Tablet 500 MG PO DAILY Aspirin (Aspirin) 81 Mg Tablet 81 MG PO HS Atorvastatin (Lipitor) 40 Mg Tablet 40 MG PO HS Bimatoprost (Lumigan) 45 Drop/2.5 Ml Ophsoln 1 DROP BOTH_EYES HS Brimonidine Tartrate (Brimonidine 0.2% Oph Soln) 5 Ml Drops 1 DROP BOTH_EYES TID Carvedilol (Coreg) 12.5 Mg Tablet 12.5 MG PO BID Cholecalciferol (Vitamin D3) (Vitamin D3) 2,000 Unit Capsule 4,000 UNIT PO DAILY Fexofenadine (Fexofenadine) 180 Mg Tablet 180 MG PO DAILY EVERY OTHER DAY Fluticasone/Salmeterol (Advair 250-50 Diskus) 60 Puff/Inh Disk 1 PUFF IH BID Furosemide (Furosemide) 40 Mg Tablet 40 MG PO DAILY Lisinopril (Lisinopril) 40 Mg Tablet 60 MG PO HS Metformin (Metformin) 500 Mg Tablet 500 MG PO BID Omeprazole (Omeprazole) 20 Mg Capsule.dr 40 MG PO BID Potassium Chloride (Potassium Chloride) 10 Meq Capsule.er 10 MEQ PO DAILY TAKE WITH FOOD Vit B Comp/C/FA/Iron/Vit E (Vitamin B Complex Tablet) 1 Each Tablet 1 EACH PO DAILY Zafirlukast (Zafirlukast) 20 Mg Tablet 20 MG PO BID General Time Seen by MD: 21:36 Past Medical History Past Medical History Glaucoma Diabetes Mellitus Hypertension GERD Paroxysmal atrial fibrillation CHF GERD ASTHMA SLEEP APNEA MELANOMA CANCER (S/P RESECTION) Past Surgical History laproscopic surgery on right knee melanoma removed from left cheek Smoking History Never Smoker Ambulatory Status Independent Physical Exam Initial Vital Signs Vital Signs (First) Date Time Temp Pulse Resp B/P Pulse Ox O2 Delivery O2 Flow Rate FiO2 06/11/17 21:12 39.0 84 19 157/46 96 Room Air Interpretation & Diagnostics Lab Results Interpretation Result Diagram: 06/11/17214806/11/[id number] Test 06/11/17 21:49 06/11/17 23:12 White Blood Count 7.1th/mm3 (3.8-10.1) Red Blood Count 3.55mil/mm3 (4.40-5.80) Hemoglobin 10.6g/dL (13.8-17.2) Hematocrit 31.8% (41.0-50.0) Mean Corpuscular Volume 89.6fL (81-100) Mean Corpuscular Hemoglobin 29.9pg (27.0-35.0) Mean Corpuscular Hemoglobin Concent 33.3% (32.0-37.0) Red Cell Distribution Width 13.5% (12.3-15.4) Platelet Count 227bil/L (150-400) Neutrophils (%) (Auto) 86.9% (40-74) Lymphocytes (%) (Auto) 7.2% (14-46) Monocytes (%) (Auto) 5.6% (4-12) Eosinophils (%) (Auto) 0% (0-5) Basophils (%) (Auto) 0% (0-3) Sodium Level 136mEq/L (134-144) Potassium Level 3.4mEq/L (3.5-5.2) Chloride Level 98mEq/L (97-108) Carbon Dioxide Level 21mmol/L (18-29) Blood Urea Nitrogen 20mg/dL (8-27) Creatinine 0.95mg/dL (0.76-1.27) Estimat Glomerular Filtration Rate 84mL/min (>59) Glucose Level 161mg/dL (60-99) Calcium Level 8.7mg/dL (8.5-10.1) Total Bilirubin 4.2mg/dL (0.0-1.2) Aspartate Amino Transf (AST/SGOT) 79U/L (0-50) Alanine Aminotransferase (ALT/SGPT) 241U/L (0-44) Alkaline Phosphatase 262U/L (25-160) Total Protein 7.2g/dL (6.4-8.4) Albumin 3.8g/dL (3.4-5.0) Lipase 43U/L (13-60) Procalcitonin 2.67ng/mL (0.00-0.08) Hold Moody Top Tube Received (Received) Urine Color Randa (YELLOW) Urine Appearance Hazy (CLEAR,HAZY) Urine pH 5.5 (5.0-8.0) Urine Specific [place] 1.020 (1.003-1.035) Urine Protein 100mg/dL (NEG,TRACE) Urine Glucose (UA) Negativemg/dL (NEGATIVE) Urine Ketones Tracemg/dL (NEGATIVE) Urine Occult Blood Trace (NEGATIVE) Urine Nitrite Negative (NEGATIVE) Urine Bilirubin Large (NEGATIVE) Urine Ictotest Positive (Negative) Urine Urobilinogen 2.0mg/dL (NORMAL) Urine Leukocyte Esterase Negative (NEGATIVE) Urine RBC 0-2/hpf (0-2) Urine WBC 0-5/hpf (0-5) Urine Epithelial Cells Moderate/hpf (NONE-MOD) Urine Crystals None seen (NONE SEEN) Urine Bacteria Few/hpf (NONE-FEW) Urine Hyaline Casts None/lpf (NONE) Urine Granular Casts Occasional (NONE SEEN) Urine Waxy Casts None seen (NONE SEEN) Urine Red Blood Cell Casts None seen (NONE SEEN) Urine White Blood Cell Casts None seen (NONE SEEN) Urine Mucus Present (None Seen) Urine Trichomonas None seen (NONE SEEN) Urine Yeast None (NONE SEEN) Urinalysis Comment None Urine Culture Reflexed Not indicated Discharge & Departure Referrals: Andre Donovan DO (PCP) Mayco Coles DO Jun 11, 2017 21:36
[2017-06-11 22:11] LABS: BASOPHILS % (AUTO) 0 % (0-3); EOSINOPHILS % (AUTO) 0 % (0-5); MONOCYTES % (AUTO) 5.6 % (4-12); Mean Corpuscular Hemoglobin 29.9 pg (27.0-35.0); Mean Corpuscular Volume 89.6 fL (81-100); NEUTROPHILS % (AUTO) 86.9 % (40-74); Platelet Count 227 bil/L (150-400)
[2017-06-11] MEDS ORDERED: Piperacillin-Tazo 3.375 Gm Inj 3.375 GM in Dextrose 5% Minibag Plus 50 ML IV ONE (22:55)
--- NOTE | 2017-06-11 23:02 | ED.REPORT ---
HPI-Abd Pain M 40 and Over Date of Service Jun 11, 2017 ED Provider: Mayco Coles DO This is a 67-year-old male with history of sick sinus syndrome status post pacemaker, CHF, diabetes type II, who presents to the emergency department for abdominal pain, weakness and fever. Patient states he developed abdominal pain and headache 3 days prior. He describes his abdominal pain as a ball of pain throughout his whole belly which he woke up with and lasted for hours. Nothing seemed to help with the pain. He had a similar pain one day ago that lasted for 2 hours with associated severe nausea and dry heaves without any vomit. He has been experiencing chills throughout these 3 days with fever up to 104 today. Last bowel movement yesterday without any diarrhea or blood. He denies chest pain, focal neurologic deficits, and dysuria. He currently is not having abdominal pain. Nursing Notes Stated Complaint: SHORTNESS OF BREATH Chief Complaint: General Complaint Nursing Notes Reviewed: Yes Allergies: Coded Allergies: Cat Dander (Verified Allergy, Severe, 06/11/17) Cultivated Oat Pollen (Verified Allergy, Severe, 06/11/17) Dust (Verified Allergy, Severe, 06/11/17) Grass (Verified Allergy, Severe, 06/11/17) hydrocodone (Verified Allergy, Mild, Rash, 06/11/17) FACE FELT ITCHY mold (Verified Allergy, Unknown, Shortness of Breath, 06/11/17) WHEEZING, FACIAL SWELLING montelukast (Verified Adverse Reaction, Severe, delirium, 06/11/17) Scheduled Apixaban (Eliquis) 5 Mg Tablet 5 MG PO BID Ascorbate Calcium (Vitamin C) 500 Mg Tablet 500 MG PO DAILY Aspirin (Aspirin) 81 Mg Tablet 81 MG PO HS Atorvastatin (Lipitor) 40 Mg Tablet 40 MG PO HS Bimatoprost (Lumigan) 45 Drop/2.5 Ml Ophsoln 1 DROP BOTH_EYES HS Brimonidine Tartrate (Brimonidine 0.2% Oph Soln) 5 Ml Drops 1 DROP BOTH_EYES TID Carvedilol (Coreg) 12.5 Mg Tablet 12.5 MG PO BID Cholecalciferol (Vitamin D3) (Vitamin D3) 2,000 Unit Capsule 4,000 UNIT PO DAILY Fexofenadine (Fexofenadine) 180 Mg Tablet 180 MG PO DAILY EVERY OTHER DAY Fluticasone/Salmeterol (Advair 250-50 Diskus) 60 Puff/Inh Disk 1 PUFF IH BID Furosemide (Furosemide) 40 Mg Tablet 40 MG PO DAILY Lisinopril (Lisinopril) 40 Mg Tablet 60 MG PO HS Metformin (Metformin) 500 Mg Tablet 500 MG PO BID Omeprazole (Omeprazole) 20 Mg Capsule.dr 40 MG PO BID Potassium Chloride (Potassium Chloride) 10 Meq Capsule.er 10 MEQ PO DAILY TAKE WITH FOOD Vit B Comp/C/FA/Iron/Vit E (Vitamin B Complex Tablet) 1 Each Tablet 1 EACH PO DAILY Zafirlukast (Zafirlukast) 20 Mg Tablet 20 MG PO BID General Time Seen by MD: 22:00 Chief Complaint Abdominal pain Hx Obtained From: Patient Sudden in Onset?: Yes Past Medical History Past Medical History Glaucoma Diabetes Mellitus Hypertension GERD Paroxysmal atrial fibrillation CHF GERD ASTHMA SLEEP APNEA MELANOMA CANCER (S/P RESECTION) Past Surgical History laproscopic surgery on right knee melanoma removed from left cheek Smoking History Never Smoker Social History Alcohol Use: Denies alcohol use Drug Use: Denies drug use Ambulatory Status Independent Review of Systems Constitutional: Reports: Chills, Fever, Weakness - generalized Respiratory: Reports: Shortness of breath Cardiovascular: Denies: Chest pain GI: Reports: Abdominal pain, Nausea, Denies: Bloody/tarry stool, Vomiting Musculoskeletal: Reports: Back pain (chronic) Complete sys rev & neg: except as marked. Physical Exam Initial Vital Signs Vital Signs (First) Date Time Temp Pulse Resp B/P Pulse Ox O2 Delivery O2 Flow Rate FiO2 06/11/17 21:12 39.0 84 19 157/46 96 Room Air Initial VS: Reviewed Head / Eyes: Atraumatic, Normocephalic, PERRL ENT: Mucous membranes moist, Conjunctiva normal Extremities: Vascular intact, Neuro intact, No tenderness Skin: Warm, Dry, No cyanosis Neurologic: Alert, Oriented, Nonfocal Psychiatric: Mood/affect normal, Behavior normal, Normal thought content General/Constitutional: Awake, Alert, No acute distress, Not toxic appearing Respiratory / Chest: Atraumatic, Breath sounds NL, Breath sounds = bilat, No respiratory distress, No rales, No rhonchi, No wheezing Cardiovascular: Heart rate NL, Regular rhythm, Heart sounds NL, No murmurs Lower Ext Edema: Positive: Bilateral 1+, Non-Pitting Abdomen: Atraumatic, Soft, McBurney's non-tender, No guarding, No rebound, BS normoactive Tenderness/Guarding/Rebound: Positive: Tender flank R Difficult to appreciate organomegaly secondary to body habitus. Color / Condition: Positive: Jaundice present Interpretation & Diagnostics Right upper quadrant ultrasound Liver: Increase in hepatic parenchymal echogenicity. Gallbladder Stones: Multiple small gallstones. Sludge: A small amount of sludge is present. Wall thickness: Thickened measuring 4.0 mm Pericholecystic fluid: None Sonographic Garcia sign: Negative Extrahepatic bile ducts: Normal with CBD measuring 4.0 mm Pancreas: Diffuse increase in parenchymal echogenicity. Ascites: None Conclusion: Gallstones and gallbladder sludge. Nonspecific gallbladder wall thickening, can be seen with cholecystitis, hepatic/cardiac dysfunction or hypoproteinemia. Fatty infiltration of the liver and pancreas. Lab Results Interpretation Result Diagram: 06/11/17214806/11/172148 Test 06/11/17 21:49 06/11/17 23:12 White Blood Count 7.1th/mm3 (3.8-10.1) Red Blood Count 3.55mil/mm3 (4.40-5.80) Hemoglobin 10.6g/dL (13.8-17.2) Hematocrit 31.8% (41.0-50.0) Mean Corpuscular Volume 89.6fL (81-100) Mean Corpuscular Hemoglobin 29.9pg (27.0-35.0) Mean Corpuscular Hemoglobin Concent 33.3% (32.0-37.0) Red Cell Distribution Width 13.5% (12.3-15.4) Platelet Count 227bil/L (150-400) Neutrophils (%) (Auto) 86.9% (40-74) Lymphocytes (%) (Auto) 7.2% (14-46) Monocytes (%) (Auto) 5.6% (4-12) Eosinophils (%) (Auto) 0% (0-5) Basophils (%) (Auto) 0% (0-3) Sodium Level 136mEq/L (134-144) Potassium Level 3.4mEq/L (3.5-5.2) Chloride Level 98mEq/L (97-108) Carbon Dioxide Level 21mmol/L (18-29) Blood Urea Nitrogen 20mg/dL (8-27) Creatinine 0.95mg/dL (0.76-1.27) Estimat Glomerular Filtration Rate 84mL/min (>59) Glucose Level 161mg/dL (60-99) Lactic Acid Level 1.2mmol/L (0.4-2.0) Calcium Level 8.7mg/dL (8.5-10.1) Total Bilirubin 4.2mg/dL (0.0-1.2) Aspartate Amino Transf (AST/SGOT) 79U/L (0-50) Alanine Aminotransferase (ALT/SGPT) 241U/L (0-44) Alkaline Phosphatase 262U/L (25-160) Total Protein 7.2g/dL (6.4-8.4) Albumin 3.8g/dL (3.4-5.0) Lipase 43U/L (13-60) Procalcitonin 2.67ng/mL (0.00-0.08) Hold Moody Top Tube Received (Received) Urine Color Randa (YELLOW) Urine Appearance Hazy (CLEAR,HAZY) Urine pH 5.5 (5.0-8.0) Urine Specific [place] 1.020 (1.003-1.035) Urine Protein 100mg/dL (NEG,TRACE) Urine Glucose (UA) Negativemg/dL (NEGATIVE) Urine Ketones Tracemg/dL (NEGATIVE) Urine Occult Blood Trace (NEGATIVE) Urine Nitrite Negative (NEGATIVE) Urine Bilirubin Large (NEGATIVE) Urine Ictotest Positive (Negative) Urine Urobilinogen 2.0mg/dL (NORMAL) Urine Leukocyte Esterase Negative (NEGATIVE) Urine RBC 0-2/hpf (0-2) Urine WBC 0-5/hpf (0-5) Urine Epithelial Cells Moderate/hpf (NONE-MOD) Urine Crystals None seen (NONE SEEN) Urine Bacteria Few/hpf (NONE-FEW) Urine Hyaline Casts None/lpf (NONE) Urine Granular Casts Occasional (NONE SEEN) Urine Waxy Casts None seen (NONE SEEN) Urine Red Blood Cell Casts None seen (NONE SEEN) Urine White Blood Cell Casts None seen (NONE SEEN) Urine Mucus Present (None Seen) Urine Trichomonas None seen (NONE SEEN) Urine Yeast None (NONE SEEN) Urinalysis Comment None Urine Culture Reflexed Not indicated Re-Eval/Medical Decision Med Decision/Clinical Course This is a 67-year-old male with history of sick sinus syndrome status post pacemaker, CHF, diabetes type II who presents to the emergency department for weakness, abdominal pain and headache ongoing for last 3 days. Given the severity of the abdominal pain that he described, its recurrent nature and a temperature of 39C, would be concerned for cholecystitis, pancreatitis, ACS, kidney stone, UTI, small bowel obstruction. His labs show normal WBC, Hgb 10.6 , with elevation in AST, ALT, alkaline phosphatase and a procalcitonin of 2.67. Lipase and lactic acid is unremarkable. Concern is for acute cholecystitis. Started Zosyn and ordered RUQ ultrasound. Right upper quadrant ultrasound shows gallbladder stones and sludge with nonspecific gallbladder wall thickening. Discussed with Dr. Poon, who recommended discussing with GI first to see if they are able to do an ERCP in the morning otherwise will need transfer. Discussed with GI who said they do not have the capability to ERCP tomorrow. Discussed with Dr. Peck, product test engineer at [facility], who checked with her GI specialist and is able to do ERCP there and accepts transfer. Patient agrees to transfer and signed consent forms. Consultation #1: Referral / Consult Name: Andre Poon MD Consulted With: Surgeon Call Returned at: 23:40 Note: Recommended calling GI to see if ERCP is available for the morning as patient may need it. If not, he recommends transfer to facility who can do ERCP. Consultation #2: Referral / Consult Name: Merrill Lowe MD Consulted With: On-call physician (GI) Call Returned at: 23:45 Note: Mentions no one will be able to do ERCP here. Consultation #3: Consulted With: Hospitalist (Dr. Peck at [facility]) Call Returned at: 00:20 Note: Will check with their GI specialist to see if they are able to do ERCP. returned call at 0035 and accepted transfer. Counseled Regarding: Diagnosis, Lab results, Need for transfer Discharge & Departure Primary Impression: Cholecystitis Additional Impression: Cholangitis Disposition: Transfer, Acute Care Facility Transfer Requested at: 00:05 Call returned time (0020) Receiving Hospital: [facility] Transfer Accepted: Yes Transfer Accepted at: 00:35 Transfer Reason: Higher level of care (ERCP) Spoke with: Hospitalist (Dr. Peck) Patient Status: Stable, Stable for transfer Patient Informed: Yes Vital Signs - All Vital Signs Date Time Temp Pulse Resp B/P Pulse Ox O2 Delivery O2 Flow Rate FiO2 06/12/17 00:20 78 22 155/54 99 Room Air 06/11/17 21:12 39.0 84 19 157/46 96 Room Air )( All Prior VS Reviewed: Yes Condition: Stable Referrals: Andre Donovan DO (PCP) Attending Statement I personally took a history of performed a physical examination. 59-year-old male with multiple medical comorbidities presents with 2 days of abdominal pain , fever and jaundice. His pain was actually very mellow in the emergency department. He is deathly febrile and jaundiced. Laboratory work shows an elevated bilirubin. Elevated transaminases. Blood cell count was normal. Chest x-ray is normal. Urine sample was negative. Ultrasound shows thickened gallbladder wall that is hyperemic with some gallstones. Signs and symptoms are consistent with acute cholecystitis. Consulted with our general surgeon. He recommends ERCP to definitively rule out cholangitis or a distal stone. We are unable to perform ERCP. Our gastroenterology sign call will not be able to perform this procedure. We are unable to care for this gentleman our facility. He was graciously accepted at [facility] by Dr. Peck We have medicated with fluids and IV Zosyn. Transfer is imminent. Erasmo Marie DO Jun 11, 2017 23:02 Mayco Coles DO Jun 12, 2017 01:45
[2017-06-11 23:28] LABS: APPEARANCE,URINE HAZY (CLEAR,HAZY); COLOR,URINE AMBER (YELLOW); ICTOTEST,URINE POSITIVE (Negative); OCCULT BLOOD,URINE TRACE (NEGATIVE); PH,URINE 5.5 (5.0-8.0)
[2017-06-12 00:20] VITALS: BP 155/54; PULSE 78; RESP 22; O2SAT 99
[2017-06-12 02:37] VITALS: BP 150/48; PULSE 72; RESP 24; O2SAT 93
[2017-06-12 03:20] VITALS: BP 150/48; PULSE 72; RESP 24; O2SAT 93
--- NOTE | 2017-06-12 08:21 | DRSVH ---
PROCEDURE: X-RAY CHEST, TWO VIEWS ([id number]) INDICATIONS: fever and cough TECHNIQUE: 2 views of the chest were acquired. COMPARISON: [facility], CR, XR CHEST 2VW, 03/11/2017, 6:37. FINDINGS: Surgical changes and devices: Left-sided cardiac pacer. Lungs and pleura: No pleural effusions or pneumothorax. Lungs are clear. Mediastinum: Mediastinal contours are normal. Heart size is normal. Bones and chest wall: No suspicious bony abnormalities. Soft tissues appear unremarkable. IMPRESSION: No radiographic evidence of acute cardiopulmonary pathology. Dictated by: Moisés Porras M.D. on 06/12/2017 at 8:19 Approved by: Moisés Porras M.D. on 06/12/2017 at 8:19
--- NOTE | 2017-06-12 11:28 | DRSVH ---
PROCEDURE: US ABDOMEN, LIMITED ([id number]) INDICATIONS: abdominal pain, acute hepatitis TECHNIQUE: Real-time focused scanning was performed of the abdomen, with image documentation. COMPARISON: [facility], , ABDOMEN LTD, 11/17/2015, 12:49. FINDINGS: Liver is diffusely increased in echogenicity. No focal hepatic abnormalities identified. Normal hepatic size. Multiple gallstones and sludge present. Gallbladder wall is thickened measuri ng 4.0 mm. IMPRESSION: 1. Increased hepatic echogenicity noted likely related to fatty infiltration of the liver but other s ources of hepatocellular disease cannot be excluded. Recommend clinical correlation. 2. Cholelithiasis/sludge with gallbladder wall thickening which could be related to developing cholec ystitis or simply related to hepatic/cardiac dysfunction or hypoproteinemia. Recommend clinical raúl elation. Note: These findings are concordant with the preliminary interpretation. Dictated by: Elias WELLS Interpreted: Moisés Porras MD on 06/12/2017 at 8:46 Approved by: Moisés Porras M.D. on 06/12/2017 at 11:26
== END 2017-06-12 03:11 | disposition short-term general hospital (02) ==
LOC: SED 21:03
DX: K83.0 Cholangitis (principal); K81.9 Cholecystitis, unspecified; I11.0 Hypertensive heart disease with heart failure; I50.9 Heart failure, unspecified; K21.9 Gastro-esophageal reflux disease without esophagitis; I48.0 Paroxysmal atrial fibrillation; E11.59 Type 2 diabetes mellitus with other circulatory complications; J45.909 Unspecified asthma, uncomplicated; H40.9 Unspecified glaucoma; Z79.82 Long term (current) use of aspirin; Z79.84 Long term (current) use of oral hypoglycemic drugs; Z95.0 Presence of cardiac pacemaker; Z88.5 Allergy status to narcotic agent; Z88.8 Allergy status to other drugs, medicaments and biological substances
CPT/HCPCS: 36415; 71020; 76705; 80053; 81000; 82948; 83605; 83690; 84145; 85025; 87040; 87804; 93005; 96365; 99285; J2543